=== PATIENT | male | born 1955 | race Caucasian/White ===

== ENCOUNTER → 2021-01-09 | Outpatient (CLI) | payer OTHER ==
[~2021-01-09] MED LIST: AMLO10TA PO; BENA40TA5 PO; GLIP-162 PO; GLIP2.5T6 PO; HYDR50TAB PO; METF-877 PO
== END ==
LOC: M LABSMTC 10:20
PROVIDERS: ATTEND Anesthesiology
DX: Z01.812 Encounter for preprocedural laboratory examination (principal)

== ENCOUNTER 2021-01-14 06:56 | Day surgery (SDC) | payer BC ==
[~2021-01-14] VITALS: Ht 185.4 cm; Wt 102.4 kg
[2021-01-14] MEDS ORDERED: LR 1,000 ML IV ONE (07:00)
[2021-01-14] MEDS ORDERED: CIPRODEX OTIC SUSP 7.5ML As Ordered ONE (07:49)
[2021-01-14] MEDS ORDERED: propofoL 200 MG/20 ML VIAL As Ordered ONE (08:35)
[2021-01-14] MEDS ORDERED: LIDOCAINE 2% 100MG/5ML SDV (FOR ANES.) As Ordered ONE (08:35)
[2021-01-14] MEDS ORDERED: ONDANSETRON 4MG/2ML VIAL As Ordered ONE (08:35)
[2021-01-14 09:15] VITALS: BP 138/86
[2021-01-14] MEDS ORDERED: METOCLOPRAMIDE INJ 10MG/2ML VIAL (J2765 PER 1) IV PRN (09:25)
[2021-01-14] MEDS ORDERED: fentaNYL 100 MCG/2 ML INJECTION (J3010) IV PRN (09:25)
[2021-01-14] MEDS ORDERED: PERCOCET 5MG/325MG TAB PO PRN (09:25)
[2021-01-14] MEDS ORDERED: LR 1,000 ML IV SCH (09:25)
[2021-01-14] MEDS ORDERED: MEPERIDINE INJ 25 MG/ML VIAL (J2175) IV PRN (09:25)
[2021-01-14] MEDS ORDERED: ONDANSETRON 4MG/2ML VIAL IV PRN (09:25)
--- NOTE | 2021-01-14 09:35 | RO ---
OPERATIVE NOTE DATE OF OPERATION: 01/14/2021 PREOPERATIVE DIAGNOSIS: Chronic otitis media with effusion. POSTOPERATIVE DIAGNOSIS: Chronic otitis media with effusion. PROCEDURE: Bilateral myringotomy tubes with a right T-tube. SURGEON: Odell Villeda MD. 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 He presents with marked decreased hearing in his right ear with mild loss in the left ear. DESCRIPTION OF PROCEDURE: Satisfactory mask anesthesia was administered. Left ear examined and cleaned under the microscope. Modest tympanosclerosis was noted and some neovascularization. An anterior-inferior myringotomy made. Serous fluid was suctioned. It was felt that the tympanic membrane was quite structurally intact and strong, and because of the limited inflammatory changes, a bevel bobbin tube was inserted, and Ciprodex drops were instilled. However, for the right ear because of atrophy of the drum and previous intubations of the drum, the plan was to place a T-tube in this tympanic membrane. Procedure on the right included cleaning the ear canal. The ear canal itself was somewhat challenging as he had a posterior canal hump as well as an anterior canal hump obscuring the tympanic membrane. The anterior-inferior myringotomy was made. There was atrophy of the drum noted. Serous fluid was suctioned from the middle ear, and a T-tube was placed through the myringotomy and positioned with a pick. Ciprodex drops were used to irrigate the ear canal. He tolerated this procedure well and was sent to recovery in satisfactory condition. He will be seen back in the office in one week.
== END 2021-01-14 09:29 | disposition home or self-care (01) ==
LOC: M SDC 06:56
PROVIDERS: ATTEND Specialist
DX: H65.23 Chronic serous otitis media, bilateral (principal); I10 Essential (primary) hypertension; E11.9 Type 2 diabetes mellitus without complications; G47.33 Obstructive sleep apnea (adult) (pediatric); M19.021 Primary osteoarthritis, right elbow; M19.022 Primary osteoarthritis, left elbow; M50.30 Other cervical disc degeneration, unspecified cervical region; Z79.899 Other long term (current) drug therapy; Z79.84 Long term (current) use of oral hypoglycemic drugs
CPT/HCPCS: 69436; J2405